=== PATIENT | male | born 1990 | race Caucasian/White ===

== ENCOUNTER 2021-04-16 09:56 | Inpatient (IN) | payer BC ==
[2021-04-16] MEDS ORDERED: Lorazepam 2 MG/ML VIAL ONE ×3 (11:26→18:54)
[2021-04-16] MEDS ORDERED: Folic Acid 1 MG, Multivitamins, Adult 10 ML in Dextrose 5 %-0.45 % NaCl 1,000 ML IV SCH (11:45)
[2021-04-16] MEDS ORDERED: Thiamine HCl 200 MG/2 ML VIAL SLOW IVP SCH (11:45)
[2021-04-16 11:52] LABS: Amphetamine Not Detected (NotDetected); Barbiturates Screen Not Detected (NotDetected); Benzodiazepine Screen Not Detected (NotDetected); Cocaine Metabolite Screen Not Detected (NotDetected); Medtox Control Line Valid? VALID (VALID); Medtox Reader # READER 4; Methadone Not Detected (NotDetected); Methamphetamine Not Detected (NotDetected); Opiate Screen Not Detected (NotDetected); Oxycodone Screen Not Detected (NotDetected); Phencyclidine (PCP) Not Detected (NotDetected); THC/Cannabinoid Screen Not Detected (NotDetected); Tricyclic Screen Not Detected (NotDetected)
[2021-04-16 12:01] LABS: Hemoglobin 16.2 g/dL (14.0-18.0); Mean Corpuscular HGB CONC 33.4 g/dL (32.0-36.0); Mean Corpuscular Hemoglobin 32.3 pg (27.0-31.0); Mean Corpuscular Volume 96.9 fL (78.0-98.0); Mean Platelet Volume 6.9 fL (7.4-10.4); Platelet Count 199 thou/uL (130-400); RBC Distribution Width 11.9 % (11.5-14.5); White Blood Cell (WBC) Count 4.8 thou/uL (4.8-10.8)
[2021-04-16 12:28] LABS: Band 14 % (5-11); Eosinophils 1 % (0-10); Lymphocytes 49 % (21-51); MDiff Complete? YES; Monocytes 6 % (0-10); Neutrophil 25 % (42-75); Reactive Lymphocytes 4 % (0-10)
[2021-04-16 12:29] LABS: Acetaminophen Less than 6.0 mcg/mL (10.0-30.0); Alcohol 214 mg/dL (Less than 10); Salicylate Less than 8.0 mg/dL (15.0-30.0)
[2021-04-16 12:31] LABS: ALT (SGPT) 58 U/L (8-55); AST (SGOT) 88 U/L (5-34); Albumin 4.5 g/dL (3.5-5.0); Alkaline Phosphatase 65 U/L (40-110); Anion Gap 22 mmol/L (10-20); BUN (Urea Nitrogen) 6 mg/dL (8.9-20.6); Bilirubin, Total 0.9 mg/dL (0.2-1.2); CK (CPK) 442 U/L (30-200); Calc. Creatinine Clearance 0 mL/min (70-130); Calcium 9.5 mg/dL (7.8-10.44); Carbon Dioxide 26 mmol/L (22-29); Chloride 92 mmol/L (98-107); Globulin 3.2 g/dL (2.4-3.5); Glucose 76 mg/dL (70-105); Potassium 4.3 mmol/L (3.5-5.1); Protein, Total 7.7 g/dL (6.0-8.3); Sodium 136 mmol/L (136-145)
[2021-04-16] MEDS ORDERED: Ondansetron PF 4 MG/2 ML Vial IVP PRN (13:45)
[2021-04-16 15:07] LABS: Bilirubin Negative (Negative); Blood, Urine Negative (Negative); Clarity Clear (Clear); Glucose, Urine (Dipstick) Normal (Negative); Ketone, Urine Negative (Negative); Leukocyte Negative Leu/uL (Negative); Nitrite Negative (Negative); Protein, Urine (Dipstick) Negative (Neg-Trace); Specific Gravity, Urine 1.004 (1.002-1.036); Urobilinogen Normal mg/dL (Less than 2)
[2021-04-16] MEDS ORDERED: Cefepime 2 GM VIAL ONE (15:27)
[2021-04-16 15:37] LABS: #Basophils 0.1 thou/uL (0.0-0.2); #Monocytes 0.4 thou/uL (0.11-0.59); #Neutrophils 2.3 thou/uL (1.40-6.50); %Basophils 1.6 % (0.0-1.0); %Eosinophils 0.6 % (0.0-10.0); %Lymphocytes 42.5 % (21.0-51.0); %Monocytes 8.6 % (0.0-10.0); %Neutrophils 46.8 % (42.0-75.0); Hemoglobin 15.4 g/dL (14.0-18.0); Mean Corpuscular HGB CONC 34.8 g/dL (32.0-36.0); Mean Corpuscular Hemoglobin 33.4 pg (27.0-31.0); Mean Corpuscular Volume 95.8 fL (78.0-98.0); Mean Platelet Volume 7.1 fL (7.4-10.4); Platelet Count 193 thou/uL (130-400); White Blood Cell (WBC) Count 4.8 thou/uL (4.8-10.8)
[2021-04-16] MEDS ORDERED: Vancomycin 1.5 GRAM/300 ML BAG 1.5 GM in Premix Bag 1 BAG IVPB SCH (16:30)
[2021-04-16 17:25] LABS: Lactic Acid 3.1 mmol/L (0.5-2.2)
[2021-04-16] MEDS ORDERED: Sodium Chloride 0.9% 1,000 ML IV SCH (19:00)
[2021-04-16] MEDS: Diazepam 5 MG TAB PO SCH ×2 (21:27→21:36)
[2021-04-16] MEDS: chlordiazePOXIDE HCl 25 MG CAP PO SCH ×2 (21:30→21:42)
[2021-04-16 22:10] VITALS: BMI 21.7
[2021-04-17] MEDS ORDERED: traZODone HCl 50 MG TAB PO SCH ×2 (00:45→21:00)
[2021-04-17] MEDS: Vancomycin 1 GM in Premix Bag 1 BAG IVPB SCH ×3 (00:48→17:21)
[2021-04-17 03:14] LABS: SARS-CoV-2 NAA Rapid Test Not Detected (NotDetected)
[2021-04-17 05:03] LABS: #Eosinphils 0.1 thou/uL (0.0-0.7); #Lymphocytes 1.6 thou/uL (1.20-3.40); #Monocytes 0.4 thou/uL (0.11-0.59); #Neutrophils 3.8 thou/uL (1.40-6.50); %Basophils 0.2 % (0.0-1.0); %Monocytes 7.1 % (0.0-10.0); %Neutrophils 63.7 % (42.0-75.0); Hemoglobin 13.7 g/dL (14.0-18.0); Mean Corpuscular HGB CONC 33.3 g/dL (32.0-36.0); Mean Corpuscular Hemoglobin 32.6 pg (27.0-31.0); Mean Platelet Volume 7.1 fL (7.4-10.4); Platelet Count 173 thou/uL (130-400); RBC Distribution Width 11.8 % (11.5-14.5); White Blood Cell (WBC) Count 5.9 thou/uL (4.8-10.8)
[2021-04-17 05:18] LABS: Anion Gap 9 mmol/L (10-20); BUN (Urea Nitrogen) 8 mg/dL (8.9-20.6); CK (CPK) 229 U/L (30-200); Calc. Creatinine Clearance 136 mL/min (70-130); Calcium 9.3 mg/dL (7.8-10.44); Carbon Dioxide 32 mmol/L (22-29); Chloride 96 mmol/L (98-107); Glucose 100 mg/dL (70-105); Potassium 3.4 mmol/L (3.5-5.1); Sodium 134 mmol/L (136-145)
[2021-04-17] MEDS: Cefepime 1 GM in Sodium Chloride 0.9% 100 ML IVPB SCH ×2 (05:49→16:12)
[2021-04-17] MEDS: Diazepam 5 MG TAB PO SCH (08:23)
[2021-04-17] MEDS: Potassium Chloride 20 MEQ TAB PO SCH ×2 (08:23→16:12)
[2021-04-17] MEDS: Enoxaparin Sodium 40 MG/0.4 ML SYRINGE SC SCH (08:23)
[2021-04-17] MEDS ORDERED: Lorazepam 1 MG TAB PO PRN (11:00)
[2021-04-17] MEDS ORDERED: Folic Acid 1 MG TAB PO SCH (11:15)
[2021-04-17] MEDS ORDERED: Multivit, Therapeutic 1 TAB PO SCH (11:15)
[2021-04-17] MEDS ORDERED: Thiamine HCl 200 MG/2 ML VIAL SLOW IVP SCH (12:00)
[2021-04-17] MEDS ORDERED: Multivitamins, Adult 10 ML, Folic Acid 1 MG in Dextrose 5 %-0.45 % NaCl 1,000 ML IV SCH (12:00)
[2021-04-17] MEDS: D5 0.9% NS w/ 20 mEq KCl 1,000 ML IV SCH ×2 (12:12→21:41)
[2021-04-17 17:17] LABS: Vancomycin, Trough 13.9 ug/mL
[2021-04-17 18:18] LABS: HBSAB Concentration Less than 8.00 mIU/mL; HBSAg Index 0.17 S/CO (0-0.99); Hep B Surf AB Non-Reactive (NonReactive); Hep B Surf Ag Non-Reactive S/CO (NonReactive); Hep C IgG Ab Non-Reactive (NonReactive); Hep C Index 0.17 S/CO (0-0.79)
[2021-04-17 18:35] LABS: Syphilis Antibody Nonreactive (Nonreactive); Syphilis Antibody Index 0.04 S/CO (<1.00 Non-Reactive)
[2021-04-17 18:36] LABS: HIV (1/2) Antibody/Antigen Non-Reactive (NonReactive); HIV 1/2 INDEX 0.08 S/CO (<1.00)
[2021-04-17] MEDS ORDERED: Temazepam 15 MG CAP PO PRN (20:35)
[2021-04-18 05:55] LABS: Anion Gap 9 mmol/L (10-20); BUN (Urea Nitrogen) 5 mg/dL (8.9-20.6); Calc. Creatinine Clearance 154 mL/min (70-130); Calcium 8.6 mg/dL (7.8-10.44); Carbon Dioxide 26 mmol/L (22-29); Chloride 103 mmol/L (98-107); Glucose 113 mg/dL (70-105); Magnesium 1.8 mg/dL (1.6-2.6); Potassium 3.9 mmol/L (3.5-5.1); Sodium 134 mmol/L (136-145)
[2021-04-18] MEDS: D5 0.9% NS w/ 20 mEq KCl 1,000 ML IV SCH ×2 (06:20→13:10)
[2021-04-18] MEDS ORDERED: Lorazepam 1 MG TAB PO SCH (08:00)
[2021-04-18] MEDS ORDERED: Folic Acid 1 MG TAB PO SCH (09:00)
[2021-04-18] MEDS ORDERED: Multivit, Therapeutic 1 TAB PO SCH (09:00)
[2021-04-18] MEDS: Enoxaparin Sodium 40 MG/0.4 ML SYRINGE SC SCH (09:03)
[2021-04-18 11:52] VITALS: BP 104/60; TEMP 98.2
== END 2021-04-18 12:45 | disposition home or self-care (01) | DRG 897 ==
LOC: ERS 09:56 → ERHOLD 13:28 → 2NO 21:03
PROVIDERS: ADMIT Internal Medicine; ATTEND Internal Medicine
PROC: HZ2ZZZZ Detoxification Services for Substance Abuse Treatment (ICD-10-PCS; principal; 2021-04-16)
DX: F10.239 Alcohol dependence with withdrawal, unspecified (principal); E87.2 Acidosis; E87.1 Hypo-osmolality and hyponatremia; M62.82 Rhabdomyolysis; F10.229 Alcohol dependence with intoxication, unspecified; Z20.822 Contact with and (suspected) exposure to COVID-19; F17.210 Nicotine dependence, cigarettes, uncomplicated; E87.6 Hypokalemia; E86.0 Dehydration; Y90.7 Blood alcohol level of 200-239 mg/100 ml; F17.290 Nicotine dependence, other tobacco product, uncomplicated; R94.6 Abnormal results of thyroid function studies; R74.01 Elevation of levels of liver transaminase levels; Z95.810 Presence of automatic (implantable) cardiac defibrillator; Z88.1 Allergy status to other antibiotic agents; Z79.899 Other long term (current) drug therapy
CPT/HCPCS: 36415; 71045; 80048; 80053; 80202; 80306; 80307; 81003; 82550; 83605; 83735; 84439; 84443; 85025; 86706; 86780; 86803; 87040; 87086; 87340; 87389; J0692; J1650; J2060; J3370; J3411; J3480; J3490; J7042; U0002